=== PATIENT | male | born 1980 | race Caucasian/White ===

== ENCOUNTER 2017-02-08 00:55 | Emergency (ER) | payer OTHER ==
[2017-02-08] MEDS ORDERED: Ibuprofen 200 MG TAB ONE (01:26)
--- NOTE | 2017-02-08 08:55 | RAD ---
RIGHT WRIST 3 VIEWS: HISTORY: Fall. Right wrist injury. FINDINGS: The scaphoid waist is intact. Mild ulna negative variable is noted. No acute fracture or dislocati on are apparent. IMPRESSION: No acute osseous abnormalities are demonstrated. POS: NINA
== END 2017-02-08 01:55 | disposition home or self-care (01) ==
LOC: ERS 00:55
DX: S63.501A Unspecified sprain of right wrist, initial encounter (principal); Z79.1 Long term (current) use of non-steroidal anti-inflammatories (NSAID); Z79.899 Other long term (current) drug therapy; W01.0XXA Fall on same level from slipping, tripping and stumbling without subsequent striking against object, initial encounter; Y92.239 Unspecified place in hospital as the place of occurrence of the external cause; Y99.0 Civilian activity done for income or pay